=== PATIENT | female | born 1950 | race Caucasian/White ===

== ENCOUNTER 2017-09-10 11:16 | Outpatient (CLI) | payer MEDICARE ==
[2017-09-10 12:15] LABS: Mean Platelet Volume 7.7 fL (7.4-10.4); Red Blood Cell (RBC) Count 4.66 mill/uL (4.20-5.40); White Blood Cell (WBC) Count 4.6 thou/uL (4.8-10.8)
--- NOTE | 2017-09-11 07:26 | EKG ---
Test Reason : PREOP Blood Pressure : / mmHG Vent. Rate : 068 BPM Atrial Rate : 068 BPM P-R Int : 192 ms QRS Dur : 080 ms QT Int : 424 ms P-R-T Axes : 022 000 -10 degrees QTc Int : 450 ms Normal sinus rhythm Moderate voltage criteria for LVH, may be normal variant Nonspecific T wave abnormality Abnormal ECG No previous ECGs available Confirmed by DR. Manjeet JOAQUIN ([id number]) on 09/11/2017 7:26:00 AM Referred By: CARSON Confirmed By:DR. Manjeet JOAQUIN
== END 2017-09-10 11:17 | disposition home or self-care (01) ==
LOC: LABBT 11:16
PROVIDERS: ATTEND Obstetrics & Gynecology
DX: Z01.812 Encounter for preprocedural laboratory examination (principal); N81.6 Rectocele
CPT/HCPCS: 85027; 86850; 86900; 86901; 93005; 93010

== ENCOUNTER 2017-09-24 18:05 | Inpatient (IN) | payer MEDICARE ==
[~2017-09-24 18:05] MED LIST: ISOVUE-370 76%-LOCM 1 ML ONE
--- NOTE | 2017-09-24 20:37 | RAD ---
FRONTAL VIEW CHEST: 09/24/17 INDICATION: Chest tightness. FINDINGS: The lungs are clear. There is no effusion or pneumothorax. The cardiac silhouette is normal in size. Osseous degenerative change present. IMPRESSION: No focal consolidation. POS: [facility]
[2017-09-24 20:53] LABS: #Eosinphils 0.3 thou/uL (0.0-0.7); #Lymphocytes 1.6 thou/uL (1.20-3.40); #Monocytes 0.9 thou/uL (0.11-0.59); #Neutrophils 5.7 thou/uL (1.40-6.50); %Basophils 0.4 % (0.0-1.0); %Lymphocytes 18.8 % (21.0-51.0); %Monocytes 10.7 % (0.0-10.0); Hematocrit 39.1 % (36.0-47.0); Mean Platelet Volume 8.3 fL (7.4-10.4); Red Blood Cell (RBC) Count 4.43 mill/uL (4.20-5.40); White Blood Cell (WBC) Count 8.4 thou/uL (4.8-10.8)
[2017-09-24 21:18] LABS: ALT (SGPT) 419 U/L (8-55); AST (SGOT) 324 U/L (5-34); Alkaline Phosphatase 327 U/L (40-150); Anion Gap 15 mmol/L (10-20); BUN (Urea Nitrogen) 14 mg/dL (9.8-20.1); Bilirubin, Total 0.7 mg/dL (0.2-1.2); Calc. Creatinine Clearance 0 mL/min (70-130); Calcium 9.3 mg/dL (7.8-10.44); Carbon Dioxide 23 mmol/L (23-31); Chloride 102 mmol/L (98-107); Estimated GFR-MDRD 70; Globulin 3.5 g/dL (2.4-3.5); Protein, Total 7.6 g/dL (6.0-8.3)
--- NOTE | 2017-09-24 21:24 | ULT ---
ULTRASOUND WITH DOPPLER DUPLEX VENOUS LOWER EXTREMITY LEFT CPT: 43217 ICD-10-PCS: B54D INDICATION: Edema TECHNIQUE: Color flow Doppler, spectral waveform analysis of pulsed Doppler, and taylor-scale imaging with compre ssion and augmentation, were used to evaluate the left common femoral, femoral, popliteal, posterior tibial, and superficial femoral, veins; and the proximal portions of the profunda femoral and great er saphenous, veins. FINDINGS: There is absence of compressibility and flow from level of the common femoral to the posterior tibia l vein. IMPRESSION: Extensive, occlusive DVT of left lower extremity. POS: [facility]
[2017-09-24 21:29] LABS: Troponin I Less than 0.010 ng/mL (< 0.028)
[2017-09-24 22:39] LABS: PTT 27.7 SEC (22.9-36.1); Prothrombin Time 12.9 SEC (12.0-14.7)
[2017-09-24] MEDS ORDERED: Rivaroxaban 15 MG TAB PO SCH (22:45)
--- NOTE | 2017-09-24 23:35 | CT ---
CTA CHEST WITH 3D VOLUME RENDERING 09/24/17 CLINICAL HISTORY: Extensive, occlusive DVT demonstrated no preceding venous ultrasound. Systolic venous thrombosis. Sh ortness of breath and pain. There is abnormal filling defect involving distal aspect of the pulmonary trunk as well as each main pulmonary artery, extending distally to involve segmental and subsegmental bilateral pulmonary colton rial branches, compatible with extensive bilateral pulmonary emboli. There are mild areas of subpleu ral opacity indicating volume loss of the lungs. No pleural fluid. Thoracic aorta is normal in calib er. IMPRESSION: Extensive, bilateral pulmonary emboli. POS: [facility]
[2017-09-25] MEDS ORDERED: hydrALAZINE 20 MG/ML VIAL SLOW IVP PRN (02:09)
[2017-09-25] MEDS ORDERED: Bisacodyl 5 MG TAB PO PRN (02:09)
[2017-09-25] MEDS ORDERED: Ondansetron HCl/PF 4 MG/2 ML Vial IVP PRN (02:09)
[2017-09-25] MEDS ORDERED: Zolpidem Tartrate 5 MG TAB PO PRN (02:09)
[2017-09-25] MEDS ORDERED: Sodium Chloride 0.9% 1,000 ML IV SCH (02:09)
[2017-09-25] MEDS ORDERED: HYDROcodone/Acetaminophen 5/325 mg Tablet PO PRN (02:09)
[2017-09-25 02:25] VITALS: BMI 38.2
[2017-09-25 02:52] LABS: Troponin I Less than 0.010 ng/mL (< 0.028)
[2017-09-25 02:57] LABS: ALT (SGPT) 375 U/L (8-55); AST (SGOT) 248 U/L (5-34); Alkaline Phosphatase 294 U/L (40-150); Anion Gap 12 mmol/L (10-20); BUN (Urea Nitrogen) 12 mg/dL (9.8-20.1); Bilirubin, Total 0.4 mg/dL (0.2-1.2); Calc. Creatinine Clearance 106 mL/min (70-130); Calcium 9.1 mg/dL (7.8-10.44); Carbon Dioxide 26 mmol/L (23-31); Chloride 103 mmol/L (98-107); Estimated GFR-MDRD 70; Globulin 2.8 g/dL (2.4-3.5); Protein, Total 6.6 g/dL (6.0-8.3)
--- NOTE | 2017-09-25 08:02 | HP ---
CHIEF COMPLAINT: Chest fluttering, chest pain and left lower extremity swelling. HISTORY OF PRESENT ILLNESS: This is a 67-year-old pleasant lady who was apparently in usual state o f health, came into the hospital because of the chest pain and left lower leg swelling. She says th at chest flutter happened on Thursday for a couple of minutes and associated with shortness of breath that resolved, but on Thursday morning when she got up, she noticed that she had some lower extrem ity edema, which worsened on and hence she came into the hospital for further evaluation an d treatment. A Doppler showed extensive DVT of the left lower extremity and CTA did show extensive bilateral pulmonary emboli. For these reasons, she has been admitted for further evaluation and katherine atment. Of note, the patient had rectocele surgery done on the 09/16. She denies any fever, chill s, diarrhea, dysuria or shortness of breath right now. PAST MEDICAL HISTORY: Significant for hypertension, hyperlipidemia. PAST SURGICAL HISTORY: For rectocele repair on the 09/16 of this year, right breast biopsy, knee youssef rgery, hysterectomy. ALLERGIES: To PENICILLIN. SOCIAL HISTORY: She is a social drinker. Denies alcohol or recreational drugs. MEDICATIONS: Include Lipitor, amlodipine, metoprolol, Effexor, Xanax. FAMILY HISTORY: Negative for diabetes, hypertension. REVIEW OF SYSTEMS: Significant for chest pain, flutter, shortness of breath and left lower extremit y swelling, otherwise no fever, no chills, no headache, no appetite, no hearing loss, no latencies. No cough, no diarrhea, dysuria, or polyuria. No memory or mood changes. PHYSICAL EXAMINATION: VITAL SIGNS: The patient's blood pressure is 127/73, pulse is 84, temperature afebrile. Patient sa tting 100% on room air. GENERAL: Patient is lying in bed in no apparent distress. HEENT: Atraumatic and normocephalic. Pupils equally round, react to light. Extraocular movements intact. Mucous membranes moist. NECK: Supple. No JVD. CHEST: Breath sounds heard. No rales or rhonchi. HEART: S1, S2. No murmurs or gallops. ABDOMEN: Soft, obese. EXTREMITIES: Left lower extremity is swollen, not tender, distal pulses are palpable. No clubbing. NEUROLOGIC: Alert, awake, oriented. No cranial deficits. No sensorimotor deficits. LABORATORY DATA AND IMAGING: LFTs are elevated. WBC count is 8.4, hemoglobin is 12, potassium is 4 .1, creatinine is 0.8. Troponin is negative. CTA shows bilateral PE. Chest x-ray negative. Doppl er shows extensive occlusive DVT of the lower extremity. ASSESSMENT AND PLAN: 1. Chest pain with chest flutter with some shortness of breath secondary to pulmonary embolism. We will put the patient on Xarelto 15 mg p.o. b.i.d. We will get echocardiogram and serial troponins and put the patient in telemetry to monitor her hemodynamically. 2. Elevated liver function tests, possibly secondary to a statin or alcohol use or fatty infiltrati on. We will do ultrasound of the liver and do vital panel. 3. Hypertension. We will continue metoprolol and p.r.n. medications. 4. Hyperlipidemia. We will hold statins and monitor liver enzymes. 5. Recent rectocele surgery, stable. 6. Sequential compression devices. The patient is on Xarelto. I will follow the labs and do the n eed for.
--- NOTE | 2017-09-25 08:07 | ULT ---
GALLBLADDER ULTRASOUND: HISTORY: A 67-year-old female with elevated LFTs. FINDINGS: Liver echogenicity is coarse, consistent with fatty change. Minimal sludge in the dependent portion of the gallbladder. No overt gallbladder wall thickening or pericholecystic fluid. There appears to be some minimal fat sparing adjacent to the gallbladder. Common bile duct is 0.6 cm. Visualized pancreas and right kidney are unremarkable. IMPRESSION: Minimal sludge within the gallbladder. Coarse liver echogenicity consistent with fatty change. A 0 .6 cm common duct. POS: [facility]
[2017-09-25] MEDS: Docusate 100 MG CAP PO SCH ×2 (08:26→20:30)
[2017-09-25] MEDS: Metoprolol Tartrate 25 MG TAB PO SCH ×2 (08:26→20:30)
[2017-09-25] MEDS: Famotidine 20 MG TAB PO SCH ×2 (08:26→20:30)
[2017-09-25] MEDS: Rivaroxaban 15 MG TAB PO SCH ×2 (08:26→16:50)
[2017-09-25 08:48] LABS: Troponin I Less than 0.010 ng/mL (< 0.028)
[2017-09-25] MEDS: Amlodipine 5 MG TAB PO SCH (09:25)
[2017-09-25] MEDS: ALPRAZolam 0.25 MG TAB PO SCH ×2 (09:27→20:30)
--- NOTE | 2017-09-25 10:59 | CON ---
DATE OF CONSULTATION: 09/25/2017 REASON FOR CONSULTATION: Deep vein thrombosis and pulmonary embolism. HISTORY OF PRESENT ILLNESS: Ms. Cerda is a pleasant 67-year-old female, who had a rectocele surgery on 09/16/2017 at this facility. Approximately 6 days after surgery, she began to have swelling in her left lower extremity. She then developed occasional shortness of breath. So, she presented to the emergency room on 09/25/2017 for evaluation. She had an ultrasound of her left lower extremity, which showed an extensive occlusive DVT. There was absence of flow from the level of the common femoral to the posterior tibial vein. She then had a CT angio of her chest, which noted extensive bilateral pulmonary emboli. She was started on Xarelto and was admitted for observation. Of note, her LFTs were elevated on admission. The patient denies any history of clotting disorder. She has had a prior hysterectomy with no complications. Her family history includes a brother, who is on anticoagulation for atrial fibrillation. She has another brother, who is on anticoagulation for she believes a blood clot , but she is unsure. No clotting history in both her parents or children. The patient states, in the past, she would have intermittent swelling of her left extremity, primarily after exercise. It would resolve overnight. She has a history of hyperlipidemia, for which she takes a statin. Her primary care is in [place]; she lives in [place]. She did show ny LFTs from 02/2017, which were normal. Currently, she denies any chest pain or shortness of breath. She has some left leg discomfort. PAST MEDICAL HISTORY: 1. Hypertension. 2. Hyperlipidemia. PAST SURGICAL HISTORY: 1. Rectocele repair, 9 days ago. 2. Hysterectomy. 3. Prior knee surgery. ALLERGIES: No known drug allergies. HOME MEDICATIONS: 1. Xanax 0.25 mg b.i.d. 2. Lipitor 20 mg daily. 3. Biotin daily. 4. Metoprolol tartrate 25 mg b.i.d. 5. Effexor XR 225 mg daily. 6. Amlodipine 5 mg daily. FAMILY HISTORY: As noted per HPI. SOCIAL HISTORY: , lives with her spouse, occasional alcohol, no tobacco or illicit drug use. REVIEW OF SYSTEMS: Constitutional: No fever, chills, night sweats. Eyes: No blurred or double vision. ENT: No pain, hoarseness, sore throat, or dysphagia. Cardiovascular: No chest pain, palpitations or syncope. Respiratory: Positive for occasional shortness of breath, no dyspnea on exertion or orthopnea. Gastrointestinal: No nausea, vomiting, diarrhea, constipation or abdominal pain. Genitourinary: No dysuria or hematuria. Musculoskeletal: Positive for leg pain. Skin: No rash. Hematologic: No petechia or purpura. Neurologic: Nonfocal. Psychiatric: The patient is alert and oriented and appropriate. PERTINENT LABORATORY AND X-RAYS: Current WBCs are 8.4, hemoglobin 12.9, hematocrit 39.1, platelet count is 183,000. She has got 67% neutrophils, 19% lymphocytes. PT is 12.9, INR 1, PTT is 27.7. Her D-dimer is 3.11. Sodium 137 , potassium 3.7, chloride 103, CO2 is 26, BUN is 12, creatinine is 0.82, calcium is 9.1, total bilirubin is 0.4, AST is 248, ALT is 375, alkaline phosphatase is 294. Troponin is negative. Serum total protein is 6.6, albumin 3.8, globulin 2.8. Her hepatitis panel is negative. Radiology per HPI. Abdominal ultrasound showed gallbladder sludge and a fatty liver. ASSESSMENT AND PLAN: 1. Provoked deep vein thrombosis with bilateral pulmonary emboli. 2. Recent retrocecal surgery on 09/16/2017. 3. Elevated liver function tests. DISCUSSION: The patient's thrombotic episode is likely provoked from her recent surgery. She did wait 3 days from start of symptoms to presentation, which may explain the extensive clotting. She has been started on anticoagulation with Xarelto and will need 3- 6 months of anticoagulation. A hypercoagulation panel can be done in the outpatient setting after she has recovered from her surgery and has been on anticoagulation for a few weeks. She will follow up with her primary care who will manage her Xarelto. Our clinic information was provided and we will be happy to see her in the outpatient setting to discuss further the need for hypercoagulation workup. Thank you for the consult. HUBER
[2017-09-25 15:32] LABS: Troponin I Less than 0.010 ng/mL (< 0.028)
--- NOTE | 2017-09-25 16:22 | PDOC.PN ---
- Subjective Encounter Start Date: 09/25/17 Encounter Start Time: 16:15 Subjective: f/u for DVT/PE likely due to immobility post-op for rectocele repair. -: Continues on Xarelto 15mg BID. - Objective MAR Reviewed: Yes Vital Signs & Weight: Vital Signs (12 hours) Temp Pulse Resp BP Pulse Ox 09/25/17 12:10 98.6 F 71 16 108/56 L 94 L 09/25/17 08:20 98.3 F 80 18 122/66 94 L Weight Weight 223 lb I&O: 09/24/17 09/25/17 09/26/17 06:59 06:59 06:59 Intake Total 410 Balance 410 Result Diagrams: 09/24/17 20:32 09/25/17 02:24 Additional Labs: Laboratory Tests 09/24/17 09/24/17 09/25/17 20:32 20:32 02:24 Total Bilirubin 0.7 AST 324 H ALT 419 H Alkaline Phosphatase 327 H Troponin I Less than 0.010 Less than 0.010 Hepatitis A IgM Ab Hep Bs Antigen Hep B Core IgM Ab Hepatitis C Antibody 09/25/17 09/25/17 09/25/17 02:24 02:24 08:07 Total Bilirubin 0.4 AST 248 H ALT 375 H Alkaline Phosphatase 294 H Troponin I Less than 0.010 Hepatitis A IgM Ab Non-Reactive Hep Bs Antigen Non-Reactive Hep B Core IgM Ab Non-Reactive Hepatitis C Antibody Non-Reactive 09/25/17 14:35 Total Bilirubin AST ALT Alkaline Phosphatase Troponin I Less than 0.010 Hepatitis A IgM Ab Hep Bs Antigen Hep B Core IgM Ab Hepatitis C Antibody Radiology Reviewed by me: Yes (CTA chest - extensive bilat PE's, LLE sono - extensive DVT) EKG Reviewed by me: Yes (Tele - SR) Phys Exam - Physical Examination Constitutional: NAD HEENT: PERRLA, oral pharynx no lesions Neck: no JVD, supple Respiratory: no wheezing Cardiovascular: RRR Gastrointestinal: soft, non-tender, no distention, positive bowel sounds Musculoskeletal: pulses present, edema present Neurological: normal sensation, moves all 4 limbs Psychiatric: A&O x 3 Skin: normal turgor, cap refill <2 seconds Dx/Plan (1) Deep vein thrombosis (DVT) of left lower extremity Code(s): I82.402 - ACUTE EMBOLISM AND THOMBOS UNSP DEEP VEINS OF L LOW EXTREM Status: Acute Comment: Femoral, popliteal and tibial involvement, Xarelto 15mg BID (2) Pulmonary emboli Code(s): I26.99 - OTHER PULMONARY EMBOLISM WITHOUT ACUTE COR PULMONALE Status : Acute Qualifiers: Chronicity: acute Comment: Bilateral involvement, Xarelto 15mg BID (3) Transaminitis Code(s): R74.0 - NONSPEC ELEV OF LEVELS OF TRANSAMNS & LACTIC ACID DEHYDRGNSE Status: Acute Comment: ? 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
[2017-09-25] MEDS ORDERED: ALPRAZolam 0.25 MG TAB PO SCH (21:00)
[2017-09-26 05:58] LABS: ALT (SGPT) 242 U/L (8-55); AST (SGOT) 84 U/L (5-34); Alkaline Phosphatase 275 U/L (40-150); Anion Gap 14 mmol/L (10-20); BUN (Urea Nitrogen) 12 mg/dL (9.8-20.1); Bilirubin, Total 0.3 mg/dL (0.2-1.2); Calc. Creatinine Clearance 104 mL/min (70-130); Calcium 9.3 mg/dL (7.8-10.44); Carbon Dioxide 25 mmol/L (23-31); Chloride 108 mmol/L (98-107); Estimated GFR-MDRD 68; Globulin 3.1 g/dL (2.4-3.5); Protein, Total 6.7 g/dL (6.0-8.3)
[2017-09-26 05:59] LABS: Band 1 % (5-11); Hematocrit 39.7 % (36.0-47.0); Neutrophil 61 % (42-75); Red Blood Cell (RBC) Count 4.48 mill/uL (4.20-5.40); White Blood Cell (WBC) Count 6.3 thou/uL (4.8-10.8)
[2017-09-26] MEDS: Metoprolol Tartrate 25 MG TAB PO SCH (08:45)
[2017-09-26] MEDS: Docusate 100 MG CAP PO SCH (08:46)
[2017-09-26] MEDS: Famotidine 20 MG TAB PO SCH (08:47)
[2017-09-26] MEDS: Amlodipine 5 MG TAB PO SCH (08:47)
[2017-09-26] MEDS: Rivaroxaban 15 MG TAB PO SCH (08:47)
[2017-09-26] MEDS: ALPRAZolam 0.25 MG TAB PO SCH (08:47)
[2017-09-26] MEDS ORDERED: Venlafaxine HCl XR 75 MG CAP PO SCH (09:00)
[2017-09-26] MEDS ORDERED: Biotin [Biotin] 5,000 MCG PO SCH (09:00)
[2017-09-26] MEDS ORDERED: Amlodipine 5 MG TAB PO SCH (09:00)
[2017-09-26] MEDS ORDERED: Multivit, Therapeutic 1 TAB PO SCH (09:00)
[2017-09-26 10:53] VITALS: BP 125/58; TEMP 98.6
--- NOTE | 2017-09-26 16:51 | DIS ---
DATE OF ADMISSION: 09/25/2017 DATE OF DISCHARGE: 09/26/2017 DISCHARGE DIAGNOSES: 1. Acute left lower extremity deep venous thrombosis of the femoral, popliteal and tibial veins pro voked. 2. Bilateral pulmonary emboli. 3. Transaminitis, likely secondary to liver shock, resolving. 4. Hypertension, stable. 5. Status post rectocele repair. CONSULTATIONS: Hematology Service. PERTINENT LAB AND X-RAY FINDINGS: Basic metabolic profile within normal limits. AST ranged between 84 to 324, ALT ranged between 242 to 419, alkaline phosphatase ranged between 275 to 327, troponin I negative x3. Albumin 3.8. CBC within normal limits. PT 12.9, INR 1.0, PTT 27.7. D-dimer 3.11. Hepatitis A, B, and C panel negative 09/25/2017. Portable chest x-ray dated 09/24/2017 showed no a cute infiltrate. Left lower extremity venous Doppler study dated 09/24/2017 showed extensive occlus norman DVT of the left lower extremity of the femoral, popliteal, posterior tibial, and superficial fem oral veins. CT angiogram of the chest dated 09/24/2017 showed extensive bilateral pulmonary emboli. Abdominal ultrasound dated 09/25/2017 showed fatty changes of the liver without evidence of common bile duct obstruction with common bile duct 0.6 cm. A 2D transthoracic echocardiogram dated 2016 showed preserved ejection fraction of 55%-60%. Mild left atrial dilation. Normal bowel functi on. Moderately elevated pulmonary artery pressure. HOSPITAL COURSE: Patient was admitted to the Telemetry Unit after initially presenting with chest p ain, palpitations and left lower extremity swelling. The patient underwent extensive evaluation wit h left lower extremity ultrasound showing extensive deep venous thrombosis of the above veins as sta alysa previously. The patient also underwent CT angiogram of the chest showing extensive bilateral pu lmonary emboli. The patient was placed on initial dose of Lovenox, transitioning to Xarelto 15 mg b .i.d. The patient was initially placed on oxygen supplementation; however, transition to room air m aintaining O2 saturations in the mid 90% range without supplementation. The patient was evaluated b y the Hematology Service with recommendations to continue anticoagulation for 6 months. Likely, the patient's presentation provoked DVT secondarily to recent rectocele repair and decreased mobility s tatus. Patient was also noted with concomitant transaminitis, ruled out for obstructive process and likely mediated by extensive thrombosis and liver shock. Patient was discontinued on Lipitor with recommendations to discontinue therapy for the next 2 weeks after discharge. Overall, patient remai melissa clinically stable over the hospital course and ready for discharge on 09/26/2017. DISCHARGE MEDICATIONS: 1. Xarelto 15 mg 1 tab p.o. b.i.d. x21 days, followed by 20 mg p.o. daily to complete 6 months of t herapy. 2. Xanax 0.25 mg p.o. b.i.d. 3. Biotin 5000 mcg p.o. daily. 4. Metoprolol tartrate 25 mg p.o. b.i.d. 5. Multivitamin 1 tab p.o. daily. 6. Effexor XR 225 mg p.o. q.a.m. 7. Amlodipine 5 mg p.o. q.a.m. FOLLOWUP: The patient will follow up with her primary care provider, Dr. Aaron Burciaga at [facility] in [place] within 7 days of discharge. CONDITION ON DISCHARGE: Stable. ACTIVITY: Ad pari. Minimal ambulation in the next 48 hours after discharge. DIET: Heart healthy. CODE STATUS: FULL. SPECIAL INSTRUCTIONS: Repeat complete metabolic profile within 5-7 days of discharge. DISPOSITION: Home 09/26/2017.
== END 2017-09-26 14:16 | disposition home or self-care (01) | DRG 175 ==
LOC: ERS 18:05 → OBSVTOIN 09-25 → 2NO 09-25
PROVIDERS: ADMIT Internal Medicine; ATTEND Internal Medicine
DX: I26.99 Other pulmonary embolism without acute cor pulmonale (principal); K72.00 Acute and subacute hepatic failure without coma; I82.412 Acute embolism and thrombosis of left femoral vein; I82.432 Acute embolism and thrombosis of left popliteal vein; I82.442 Acute embolism and thrombosis of left tibial vein; I10 Essential (primary) hypertension; Z90.710 Acquired absence of both cervix and uterus; Z88.0 Allergy status to penicillin; E78.5 Hyperlipidemia, unspecified; R74.0 Nonspecific elevation of levels of transaminase and lactic acid dehydrogenase [LDH]; N99.89 Other postprocedural complications and disorders of genitourinary system
CPT/HCPCS: 36415; 71010; 71275; 76705; 80053; 80074; 82553; 84484; 85007; 85025; 85027; 85379; 85610; 85730; 93005; 93306; A4216